=== PATIENT | female | born 1965 | race African-American/Black ===

== ENCOUNTER 2017-08-13 05:43 | Emergency (ER) | payer OTHER ==
[~2017-08-13] VITALS: Ht 157.5 cm; Wt 72.6 kg
[2017-08-13 06:15] LABS: ABSOLUTE EOSINOPHILS 0.3 thou/uL (0.0-0.7); ABSOLUTE LYMPHOCYTES 2.8 thou/uL (0.8-5.3); ABSOLUTE MONOCYTES 0.4 thou/uL (0.0-1.2); ABSOLUTE NEUTROPHILS 2.9 thou/uL (1.6-8.1); BASOPHILS 0.6 %; EOSINOPHILS 3.9 %; HEMOGLOBIN 11.9 gm/dL (12.0-15.0); LYMPHOCYTES 44.3 %; MCH 26.6 pg (26.0-34.0); MCHC 32.2 g/dL (28.0-37.0); MCV 82.6 fL (80.0-100.0); MONOCYTES 5.9 %; MPV 7.5 fl. (7.2-11.1); NUCLEATED RBCS 0 /100WBC; PLATELET COUNT* 310 thou/uL (150-400); POLYS 45.3 %; RBC 4.48 mil/uL (4.20-5.00); WBC 6.4 thou/uL (4.0-11.0)
[2017-08-13 06:17] LABS: CALCIUM 8.5 mg/dL (8.5-10.1); CREATININE 0.7 mg/dL (0.6-1.3)
[2017-08-13 06:26] LABS: MAGNESIUM 1.9 mg/dL (1.8-2.4)
[2017-08-13] MEDS ORDERED: MAG-OXIDE400 MG PO (06:46)
[2017-08-13] MEDS ORDERED: FLEXERIL PO (06:46)
[2017-08-13 06:55] LABS: URINE BILIRUBIN NEGATIVE (Negative); URINE BLOOD NEGATIVE (Negative); URINE CLARITY CLEAR; URINE COLOR YELLOW; URINE GLUCOSE-RANDOM NEGATIVE (Negative); URINE KETONES NEGATIVE (Negative); URINE LEUKOCYTES-REFLEX NEGATIVE (Negative); URINE NITRITE-REFLEX NEGATIVE (Negative); URINE PROTEIN NEGATIVE (Negative); URINE UROBILINOGEN 0.2 E.U./dl (0.2-1.0)
[2017-08-13 07:02] VITALS: BP 120/82
== END 2017-08-13 07:03 | disposition home or self-care (01) ==
LOC: M.ERS 05:43
PROVIDERS: Emergency Medicine
DX: R25.2 Cramp and spasm (principal)

== ENCOUNTER 2019-05-14 21:58 | Emergency (ER) | payer OTHER ==
[~2019-05-14] VITALS: Ht 157.5 cm; Wt 68.0 kg
[~2019-05-14 21:58] MED LIST: FLEXERIL PO; MAG-OXIDE400 MG PO
[2019-05-14 23:21] VITALS: BP 125/90
== END 2019-05-14 23:22 | disposition home or self-care (01) ==
LOC: M.ERS 21:58
DX: S83.8X2A Sprain of other specified parts of left knee, initial encounter (principal); Z90.89 Acquired absence of other organs; Z86.73 Personal history of transient ischemic attack (TIA), and cerebral infarction without residual deficits; Z91.018 Allergy to other foods; W11.XXXA Fall on and from ladder, initial encounter; Y93.89 Activity, other specified; Y92.89 Other specified places as the place of occurrence of the external cause; Y99.0 Civilian activity done for income or pay